=== PATIENT | male | born 1965 | race African-American/Black ===

== ENCOUNTER 2016-06-12 15:28 | Emergency (ER) | payer MEDICAID, OTHER ==
[~2016-06-12] VITALS: Ht 185.4 cm; Wt 92.7 kg
[~2016-06-12 15:28] MED LIST: HYDR-762 PO; HYDR-902 PO; IBUP800T25 PO; ONDA4TAB35 PO; TAMS-14 PO
[2016-06-12 15:41] VITALS: Ht 185.4 cm; Wt 92.7 kg
[2016-06-12] MEDS ORDERED: SOD CHLORIDE 0.9% 1,000 ML IV STA (17:09)
[2016-06-12] MEDS ORDERED: ONDANSETRON 4 MG INJ IV STA (17:09)
[2016-06-12] MEDS ORDERED: DICLOFENAC SODIUM 37.5 MG/ML VIAL IV STA (17:09)
[2016-06-12 18:05] LABS: HEMATOCRIT 44.7 % (42.0-52.0); HEMOGLOBIN 14.9 g/dl (14.0-18.0); MEAN CORPUSCULAR HEMOGLOBIN 28.6 pg (29.0-33.0); MEAN CORPUSCULAR HGB CONC 33.4 g/dl (32.0-37.0); MEAN CORPUSCULAR VOLUME 85.7 fl (82.0-101.0); PLATELET COUNT 270 10^3/UL (140-440); RED BLOOD COUNT 5.22 10^6/ul (4.70-6.10); RED CELL DISTRIBUTION WIDTH 15.7 % (11.5-14.5); UNCORRECTED WBC 21.4 10^3/ul (4.8-10.8); WHITE BLOOD COUNT 21.4 10^3/ul (4.8-10.8)
[2016-06-12 18:09] LABS: CONDITION 1; LH ANALYZER COMMENTS 1; SUSPECT 1
[2016-06-12 18:14] LABS: INR 0.99; PROTIME 13.1 Sec (12.2-14.2)
[2016-06-12 18:15] LABS: PARTIAL THROMBOPLASTIN TIME 30.3 Sec (25.0-35.0)
[2016-06-12 18:16] LABS: ALBUMIN 4.6 g/dl (3.3-4.9); POTASSIUM 3.8 mmol/L (3.5-5.1)
[2016-06-12 18:18] LABS: BILIRUBIN,INDIRECT 0.4 mg/dl (0-1.1); BILIRUBIN,TOTAL 0.4 mg/dl (0.2-1.3); CREATININE 1.26 mg/dl (0.61-1.24)
[2016-06-12 18:19] LABS: ALBUMIN/GLOBULIN RATIO 0.95; CALCIUM 10.3 mg/dl (8.4-10.2); TOTAL PROTEIN 9.4 g/dl (6.1-8.1)
[2016-06-12 18:47] LABS: LYMPHOCYTES # 2.4 10^3/ul (0.8-2.9); MONOCYTE # 1.9 10^3/ul (0.3-0.9); NEUTROPHIL # 16.5 10^3/ul (1.6-7.5)
--- NOTE | 2016-06-12 19:00 | RADRPT ---
PROCEDURE: CT abdomen and pelvis without contrast. CLINICAL INDICATION: Left upper quadrant pain that radiates to the back. TECHNIQUE: CT of the abdomen and pelvis without contrast was performed on a multidetector high-res olution CT scanner. Coronal and sagittal reformatted images were obtained from the axial source imag es. Images were reviewed on a high-resolution PACS workstation. The total exam CTDI equals 10.26 mGy and the total exam DLP equals 636.26 mGy-cm. One or more of the following dose reduction techniques were used: - Automated exposure control. - Adjustment of the mA and/or kV according to patient size. - Use of iterative reconstruction technique. COMPARISON: CT dated 05/11/2016. FINDINGS: The visualized lung bases are clear and the visualized heart is unremarkable. The liver is grossly unremarkable. There is no intra or extrahepatic biliary ductal dilatation. The gallbladder, spleen, pancreas, adrenal glands are grossly unremarkable. There is an obstructing 5 mm stone in the distal left ureter just above the ureteral vesicle junctio n with associated moderate to severe left-sided hydroureteronephrosis and left perinephric and periu reteral inflammatory change. There are no residual radiopaque stones within the left kidney and the re are no stones within the right kidney, ureter, or bladder. There is a simple 2.8 cm cyst at the lower pole of the right kidney. There is no right-sided hydronephrosis. There is sigmoid diverticulosis without bowel wall thickening or evidence of obstruction. The append ix is in the right lower quadrant, and is unremarkable. There is no free intraperitoneal air or free fluid. There is no mesenteric or retroperitoneal adenopathy. There are atherosclerotic changes of the aorta and its branch vessels. 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 The prostate gland and seminal vesicles are grossly unremarkable. Ther e is mild multilevel degenerative spondylosis. There are no concerning osseous lesions. IMPRESSION: 1. Obstructing 5 mm stone in the distal left ureter with associated moderate to severe left-sided h ydroureteronephrosis. 2. 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 3. Vascular calcifications consistent with atherosclerosis. 4. Benign 2.8 cm cyst at the lower pole of the right kidney. No further workup is necessary. These findings discussed with Michael Allen in the ED at 1854 hours on 06/12/2016. RPTAT: HLBP .Faheem Love MD, Date Time Electronically viewed and signed by .Faheem Love MD, on 06/12/2016 18:59 .P/
[2016-06-12 19:33] LABS: ADD UMIC YES; URINE BILIRUBIN (Dip) 1+ (NEGATIVE); URINE BLOOD (Dip) 1+ (NEGATIVE); URINE GLUCOSE (Dip) NEGATIVE (NEGATIVE); URINE KETONES (Dip) 40 (NEGATIVE); URINE LEUKOCYTE ESTERASE (Dip) TRACE (NEGATIVE); URINE NITRITE (Dip) NEGATIVE (NEGATIVE); URINE TOTAL PROTEIN (Dip) TRACE (NEGATIVE); URINE UROBILINOGEN (Dip) 0.2 E.U./dL (0.1-1.0)
[2016-06-12 19:50] LABS: URINE COLOR YELLOW (YELLOW)
[2016-06-12 19:51] LABS: BACTERIA,URINE FEW; ICTOTEST NEGATIVE (NEGATIVE); MUCUS,URINE MANY; TRANSITIONAL EPI CELLS,URINE FEW; TRICHOMONAS,URINE FEW; URINE RBCS >50 /HPF (0)
[2016-06-12] MEDS ORDERED: HYDR-906 PO (20:29)
[2016-06-12] MEDS ORDERED: ONDA4TAB14 PO (20:29)
[2016-06-12] MEDS ORDERED: NAPR-260 PO (20:29)
[2016-06-12 20:36] VITALS: BP 143/91; RESP 30; TEMP 97.7
--- NOTE | 2016-06-12 20:47 | ERD ---
ER Documentation Chief Complaint Date/Time DATE: 06/12/16 TIME: 20:42 Chief Complaint left quadrant pain radiates to the back HPI This 50-year-old male presents for left lower quadrant pain that radiates to his left flank. Pain has been present for a day. He does have a history of passing kidney stones. He denies any fevers and chills. He has no nausea. He is having normal bowel movements. He denies any obvious blood in his urine. ROS All systems reviewed and are negative except as per history of present illness. Medications Home Meds Active Scripts Ondansetron (Ondansetron Odt) 4 Mg Tab.rapdis, 4 MG PO Q6H Y for NAUSEA AND/OR VOMITING, #10 TAB Prov:CONSUELOMORENO DO 06/12/16 Hydrocodone/Acetaminophen (Revere 5-325 Tablet) 1 Each Tablet, 1 EACH PO Q6, #20 TAB Prov:CONSUELOMORENO DO 06/12/16 Naproxen* (Naprosyn*) 500 Mg Tablet, 500 MG PO BID Y for PAIN AND/OR INFLAMMATION, #30 TAB Prov:CONSUELOMORENO DO 06/12/16 Tamsulosin Hcl* (Flomax*) 0.4 Mg Cap.er.24h, 0.4 MG PO QPM, #30 CAP Prov:BALAJI LOPEZ MD 05/11/16 Hydrocodone/Acetaminophen (Revere 10-325 Tablet) 1 Each Tablet, 1 TAB PO Q6H Y for PAIN, #20 TAB Prov:BALAJI LOPEZ MD 05/11/16 Ibuprofen* (Motrin*) 800 Mg Tab, 800 MG PO Q6H Y for PAIN AND OR ELEVATED TEMP, #30 TAB Prov:LAZ IBANEZ MD 10/25/15 Tamsulosin Hcl* (Flomax*) 0.4 Mg Cap.er.24h, 0.4 MG PO QPM, #30 CAP Prov:LAZ IBANEZ MD 10/25/15 Ondansetron Hcl* (Zofran* ODT) 4 mg -ODT Tab.disper, 4 MG PO Q6 Y for NAUSEA AND /OR VOMITING, #30 TAB Prov:LAZ IBANEZ MD 10/25/15 Hydrocodone Bit-Acetaminophen* (Revere*) 10-325 Mg Tablet, 1 TAB PO Q6 Y for PAIN , #12 TAB Prov:LAZ IBANEZ MD 10/25/15 Allergies Allergies: Coded Allergies: No Known Allergy (Unverified , 05/11/16) PMhx/Soc History of Surgery: No Anesthesia Reaction: No Hx Neurological Disorder: Yes (Stroke with right sided weakness) Hx Respiratory Disorders: No Hx Cardiac Disorders: Yes (HTN) Hx Psychiatric Problems: No Hx Miscellaneous Medical Probl: No Hx Alcohol Use: Yes Hx Substance Use: Yes (marijuana) Hx Tobacco Use: Yes Smoking Status: Current every day smoker Physical Exam Vitals Vital Signs Date Time Temp Pulse Resp B/P Pulse Ox O2 Delivery O2 Flow Rate FiO2 06/12/16 16:47 97.7 30 165/110 100 Room Air 06/12/16 15:41 98.7 88 19 183/98 98 Physical Exam Const: [] No distress Head: Atraumatic Eyes: Normal Conjunctiva ENT: Normal External Ears, Nose and Mouth. Neck: Full range of motion..~ No meningismus. Resp: Clear to auscultation bilaterally Cardio: Regular rate and rhythm, no murmurs Abd: Soft, non tender, non distended. Normal bowel sounds Skin: No petechiae or rashes Back: No midline or flank tenderness Ext: No cyanosis, or edema Neur: Awake and alert and oriented 3, no focal deficits Psych: Normal Mood and Affect Result Diagram: 06/12/16 1730 06/12/16 1730 Results 24 hrs Laboratory Tests Test 06/12/16 16:44 06/12/16 17:30 06/12/16 19:11 Bedside Glucose 154mg/dL Activated Partial Thromboplast Time 30.3Sec Alanine Aminotransferase (ALT/SGPT) 22IU/L Albumin 4.6g/dl Albumin/Globulin Ratio 0.95 Alkaline Phosphatase 125IU/L Anion Gap 23 Aspartate Amino Transf (AST/SGOT) 21IU/L Band Neutrophils % 3.0% Blood Morphology Comment Blood Urea Nitrogen 20mg/dl Calcium Level 10.3mg/dl Carbon Dioxide Level 24mmol/L Chloride Level 105mmol/L Creatinine 1.26mg/dl Direct Bilirubin 0.00mg/dl Globulin 4.80g/dl Glucose Level 132mg/dl Hematocrit 44.7% Hemoglobin 14.9g/dl INR International Normalized Ratio 0.99 Indirect Bilirubin 0.4mg/dl Lipase 113U/L Lymphocytes # 2.410^3/ul Lymphocytes % 11.0% Mean Corpuscular Hemoglobin 28.6pg Mean Corpuscular Hemoglobin Concent 33.4g/dl Mean Corpuscular Volume 85.7fl Mean Platelet Volume 9.0fl Monocytes # 1.910^3/ul Monocytes % 9.0% Neutrophils # 16.510^3/ul Neutrophils % 77.0% Platelet Count 97890^3/UL Potassium Level 3.8mmol/L Prothrombin Time 13.1Sec Prothrombin Time Ratio 1.0 Red Blood Count 5.2210^6/ul Red Cell Distribution Width 15.7% Sodium Level 148mmol/L Total Bilirubin 0.4mg/dl Total Protein 9.4g/dl White Blood Count 21.410^3/ul Urine Bacteria FEW Urine Bilirubin 1+ Urine Clarity CLOUDY Urine Color YELLOW Urine Glucose NEGATIVE% Urine Hemoglobin 1+ Urine Ictotest NEGATIVE Urine Ketones 40 Urine Leukocyte Esterase TRACE Urine Microscopic RBC >50/HPF Urine Microscopic WBC 5-10/HPF Urine Mucus MANY Urine Nitrite NEGATIVE Urine Specific [place] 1.020 Urine Total Protein TRACE Urine Transitional Epithelial Cells FEW Urine Trichomonas FEW Urine Urobilinogen 0.2 E.U./dL Urine pH 6.0 Current Medications Medications (Trade) Dose Ordered Sig/Emeka Route PRN Reason Start Time Stop Time Status Last Admin Dose Admin Sodium Chloride (NS) 1,000 ml @ 1,000 mls/hr Q1H STAT IV 06/12/16 17:09 06/12/16 18:08 DC 06/12/16 17:36 Ondansetron HCl (Zofran Inj) 4 mg ONCE STAT IV 06/12/16 17:09 06/12/16 17:11 DC 06/12/16 17:36 Diclofenac Sodium (Dyloject) 37.5 mg ONCE STAT IV 06/12/16 17:09 06/12/16 17:11 DC 06/12/16 17:36 Procedures/MDM Left distal ureteral stone with moderate to severe hydronephrosis. Patient has leukocytosis without any evidence of infection. It is likely reactive related to the hydronephrosis. He was given a liter of normal saline as well as IV diclofenac. This resolved his pain completely as stated he had no symptoms whatsoever. Present was told that he light of fluid backing of his kidney. He still preferred to go home as he has no symptoms currently. . Because the stone although 5 mm is right above the entrance to the bladder and symptoms on her present for one day as arty past this far, I'm going to discharge him. I told him to have a very low threshold for returning to the hospital for any reasons be at fever or returning pain and also told him that if he still has the same pain 2 days from now that he should return.. And discharging him with naproxen, Revere, Zofran. States he has plenty of Flomax at home. Evidence of mild renal dysfunction. CT abdomen and pelvis interpretation: 5 mm stone of the distal ureter at the UPJ with moderate to severe hydronephrosis, no obstruction, no free air, no fractures Departure Diagnosis: Primary Impression: Hydronephrosis Additional Impression: Ureteral colic Condition: Stable Patient Instructions: Hydronephrosis Adult, Kidney Stone W/ Colic Additional Instructions: Call your primary care doctor TOMORROW for an appointment during the next 2-3 days.See the doctor sooner or return here if your condition worsens before your appointment time. MORENO CORDERO DO Jun 12, 2016 20:47
== END 2016-06-12 21:50 | disposition home or self-care (01) ==
LOC: E/R 15:28
DX: N13.30 Unspecified hydronephrosis (principal); N23 Unspecified renal colic; I10 Essential (primary) hypertension; F17.210 Nicotine dependence, cigarettes, uncomplicated
CPT/HCPCS: 36415; 74176; 80053; 81001; 82962; 83690; 85025; 85610; 85730; 96374; 96375; J2405; J7030; Z7502; Z7610; 81003

== ENCOUNTER 2016-10-20 22:11 | Emergency (ER) | payer MEDICAID, OTHER ==
[~2016-10-20] VITALS: Ht 177.8 cm; Wt 90.5 kg
[~2016-10-20 22:11] MED LIST changes: +HYDR-906 PO; +NAPR-260 PO; +ONDA4TAB14 PO
[2016-10-20 22:20] VITALS: Ht 177.8 cm; Wt 90.5 kg
[2016-10-20] MEDS ORDERED: ONDANSETRON 4 MG INJ IV STA (22:47)
[2016-10-20] MEDS ORDERED: KETOROLAC 30 MG INJ IV STA (22:47)
[2016-10-20] MEDS ORDERED: HYDROmorphONE 1 MG/ML SYG IV STA (22:47)
[2016-10-20] MEDS ORDERED: SOD CHLORIDE 0.9% 1,000 ML IV STA (22:47)
[2016-10-20 22:50] VITALS: RESP 24; TEMP 98
[2016-10-20 23:02] LABS: ADD SCAN DIFF NO
[2016-10-20 23:03] LABS: BASOPHILS % 0.1 % (0.0-2.0); EOSINOPHILS % 0.2 % (0.0-7.0); HEMATOCRIT 40.9 % (42.0-52.0); HEMOGLOBIN 13.7 g/dl (14.0-18.0); LYMPHOCYTES # 2.3 10^3/ul (0.8-2.9); MEAN CORPUSCULAR HEMOGLOBIN 28.5 pg (29.0-33.0); MEAN CORPUSCULAR HGB CONC 33.5 g/dl (32.0-37.0); MEAN CORPUSCULAR VOLUME 85.2 fl (82.0-101.0); MEAN PLATELET VOLUME 9.4 fl (7.4-10.4); MONOCYTE # 1.3 10^3/ul (0.3-0.9); MONOCYTES % 6.7 % (0.0-11.0); NEUTROPHIL # 15.3 10^3/ul (1.6-7.5); NEUTROPHILS % 80.7 % (39.0-77.0); PLATELET COUNT 276 10^3/UL (140-415); RED CELL DISTRIBUTION WIDTH 15.7 % (11.5-14.5)
[2016-10-20 23:29] VITALS: BP 133/76; PULSE 52
[2016-10-20 23:29] LABS: INR 1.03; PROTIME 13.5 Sec (12.2-14.2); PT RATIO 1.1
[2016-10-20 23:30] LABS: PARTIAL THROMBOPLASTIN TIME 27.5 Sec (25.0-35.0)
[2016-10-20 23:31] LABS: CALCIUM 9.6 mg/dl (8.4-10.2); CREATININE 1.11 mg/dl (0.61-1.24); POTASSIUM 3.8 mmol/L (3.5-5.1)
--- NOTE | 2016-10-20 23:53 | ERD ---
ER Documentation Chief Complaint Date/Time DATE: 10/20/16 TIME: 23:52 Chief Complaint left flank pain since 5 hours ago HPI 51-year-old male history of kidney stones who presents with sudden onset left flank pain radiating to the left lower quadrant. He states this feels similar to stones. He states that in the past he has required lithotripsy. He also describes a large left renal cyst. He denies any fevers or chills, no nausea or vomiting. Pain is severe, colicky. ROS All systems reviewed and are negative except as per history of present illness. Medications Home Meds Active Scripts Ibuprofen* (Motrin*) 800 Mg Tab, 800 MG PO Q6H Y for PAIN AND OR ELEVATED TEMP, #30 TAB Prov:LAZ IBANEZ MD 10/21/16 Tamsulosin Hcl* (Flomax*) 0.4 Mg Cap.er.24h, 0.4 MG PO HS, #8 CAP Prov:LAZ IBANEZ MD 10/21/16 Ondansetron (Ondansetron Odt) 4 Mg Tab.rapdis, 4 MG PO Q6H Y for NAUSEA AND/OR VOMITING, #30 TAB Prov:LAZ IBANEZ MD 10/21/16 Hydrocodone/Acetaminophen (Gordon 10-325 Tablet) 1 Each Tablet, 1 TAB PO Q6H Y for PAIN, #10 TAB Prov:LAZ IBANEZ MD 10/21/16 Ondansetron (Ondansetron Odt) 4 Mg Tab.rapdis, 4 MG PO Q6H Y for NAUSEA AND/OR VOMITING, #10 TAB Prov:MORENO CORDERO DO 06/12/16 Hydrocodone/Acetaminophen (Gordon 5-325 Tablet) 1 Each Tablet, 1 EACH PO Q6, #20 TAB Prov:MORENO CORDERO DO 06/12/16 Naproxen* (Naprosyn*) 500 Mg Tablet, 500 MG PO BID Y for PAIN AND/OR INFLAMMATION, #30 TAB Prov:MORENO CORDERO DO 06/12/16 Tamsulosin Hcl* (Flomax*) 0.4 Mg Cap.er.24h, 0.4 MG PO QPM, #30 CAP Prov:BALAJI LOPEZ MD 05/11/16 Ibuprofen* (Motrin*) 800 Mg Tab, 800 MG PO Q6H Y for PAIN AND OR ELEVATED TEMP, #30 TAB Prov:LAZ IBANEZ MD 10/25/15 Discontinued Scripts Hydrocodone/Acetaminophen (Gordon 10-325 Tablet) 1 Each Tablet, 1 TAB PO Q6H Y for PAIN, #20 TAB Prov:BALAJI LOPEZ MD 05/11/16 Tamsulosin Hcl* (Flomax*) 0.4 Mg Cap.er.24h, 0.4 MG PO QPM, #30 CAP Prov:LAZ IBANEZ MD 10/25/15 Ondansetron Hcl* (Zofran* ODT) 4 mg -ODT Tab.disper, 4 MG PO Q6 Y for NAUSEA AND /OR VOMITING, #30 TAB Prov:LAZ IBANEZ MD 10/25/15 Hydrocodone Bit-Acetaminophen* (Gordon*) 10-325 Mg Tablet, 1 TAB PO Q6 Y for PAIN , #12 TAB Prov:LAZ IBANEZ MD 10/25/15 Allergies Allergies: Coded Allergies: No Known Allergy (Unverified , 05/11/16) PMhx/Soc History of Surgery: No Anesthesia Reaction: No Hx Neurological Disorder: Yes (Stroke with right sided weakness) Hx Respiratory Disorders: No Hx Cardiac Disorders: Yes (HTN) Hx Psychiatric Problems: No Hx Miscellaneous Medical Probl: No Hx Alcohol Use: Yes Hx Substance Use: Yes (marijuana) Hx Tobacco Use: Yes Smoking Status: Current every day smoker FmHx Family History: No diabetes Physical Exam Vitals Vital Signs Date Time Temp Pulse Resp B/P Pulse Ox O2 Delivery O2 Flow Rate FiO2 10/20/16 23:29 52 133/76 10/20/16 22:50 98.0 60 24 152/119 100 Room Air 10/20/16 22:20 98.2 88 20 154/82 99 Physical Exam General: Uncomfortable and in pain Head: Normocephalic, atraumatic. Eyes: Pupils equally reactive, EOM intact ENT: Moist mucous membranes Neck: Supple, no lymphadenopathy Respiratory: Lungs clear bilaterally, no distress Cardiovascular: RRR, no murmurs, rubs, or gallops Abdominal: Soft, left-sided abdominal tenderness without rebound or guarding, no inguinal hernia : Deferred MSK: No edema, no unilateral swelling, 5/5 strength Neurologic: Alert and oriented, moving all extremities, normal speech, no focal weakness, no cerebellar signs Skin: No rash Psych: Normal mood Result Diagram: 10/20/16223910/20/162239 Results 24 hrs Laboratory Tests Test 10/20/16 22:40 White Blood Count 19.010^3/ul Red Blood Count 4.8010^6/ul Hemoglobin 13.7g/dl Hematocrit 40.9% Mean Corpuscular Volume 85.2fl Mean Corpuscular Hemoglobin 28.5pg Mean Corpuscular Hemoglobin Concent 33.5g/dl Red Cell Distribution Width 15.7% Platelet Count 13939^3/UL Mean Platelet Volume 9.4fl Neutrophils % 80.7% Lymphocytes % 12.0% Monocytes % 6.7% Eosinophils % 0.2% Basophils % 0.1% Nucleated Red Blood Cells % 0.0/100WBC Neutrophils # 15.310^3/ul Lymphocytes # 2.310^3/ul Monocytes # 1.310^3/ul Eosinophils # 0.010^3/ul Basophils # 0.010^3/ul Nucleated Red Blood Cells # 0.010^3/ul Prothrombin Time 13.5Sec Prothrombin Time Ratio 1.1 INR International Normalized Ratio 1.03 Activated Partial Thromboplast Time 27.5Sec Sodium Level 141mmol/L Potassium Level 3.8mmol/L Chloride Level 107mmol/L Carbon Dioxide Level 28mmol/L Anion Gap 10 Blood Urea Nitrogen 16mg/dl Creatinine 1.11mg/dl Glucose Level 118mg/dl Calcium Level 9.6mg/dl Current Medications Medications (Trade) Dose Ordered Sig/Emeka Route PRN Reason Start Time Stop Time Status Last Admin Dose Admin Sodium Chloride (NS) 1,000 ml @ 1,000 mls/hr Q1H STAT IV 10/20/16 22:47 10/20/16 23:46 DC 10/20/16 22:51 Hydromorphone HCl (Dilaudid) 1 mg ONCE STAT IV 10/20/16 22:47 10/20/16 22:49 DC 10/20/16 22:51 Ondansetron HCl (Zofran Inj) 4 mg ONCE STAT IV 10/20/16 22:47 10/20/16 22:49 DC 10/20/16 22:51 Ketorolac Tromethamine (Toradol) 30 mg ONCE STAT IV 10/20/16 22:47 10/20/16 22:49 DC 10/20/16 22:51 Procedures/MDM EKG, MONITORS, & DIAGNOSTIC IMAGING: CT abdomen and pelvis: IMPRESSION: 1. Moderate left-sided hydroureteronephrosis with an obstructing distal left ureterovesicle junction 6 x 5 mm calculus similar appearance to the patient's prior study. 2. Right renal cyst. 3. Mild retained stool without obstruction. 4. Right common iliac artery 2.4 cm aneurysmal dilatation without interval change. LAB INTERPRETATION: Leukocytosis secondary to pain. No urinary tract infection MEDICAL DECISION MAKING: The patient presents with colicky left flank pain. The patient's symptoms are very consistent with renal colic. The patient has had kidney stones in the past however they have been complicated. This will prompt CT imaging of the abdomen and pelvis. Patient will benefit from pain control, rule out of complication such as abscess, intractable pain or infection. ER COURSE: The patient's pain is improved. The patient has leukocytosis but no evidence of infection. The patient will be referred back to his urologist. Return precautions discussed including uncontrolled pain, fever or persistent symptoms. I kept the patient and/or family informed of laboratory and diagnostic imaging results throughout the emergency room course. DISPOSITION PLAN: We discussed follow up with the patient's primary care doctor within 24 to 48 hours as needed. We also discussed return to the emergency room for worsening symptoms or worsening condition. Outpatient referral: Urology Discharge Medications: Gordon, Zofran, Flomax, Motrin We discussed the use of narcotics including avoidance of operating heavy machinery and driving as well as its addictive properties. Departure Diagnosis: Primary Impression: Ureteral colic Condition: LAZ Sherman MD October 20, 2016 23:53
--- NOTE | 2016-10-21 00:18 | RADRPT ---
PROCEDURE: CT ABDOMEN/PELVIS WITHOUT CONTRAST CLINICAL INDICATION: 51-year-old male with abdominal/flank pain. TECHNIQUE: The study was performed utilizing a [employer] VCT 64-slice CT scanner. Direct axia l sections were obtained through the abdomen and pelvis without the use of intravenous contrast mate rial. Sagittal and coronal reformations were obtained. One or more of the following dose reduction t echniques were utilized: automated exposure control, adjustment of the mA and/or kV according to pat ient's size or use of iterative reconstruction technique. The images were reviewed on a PACS workst [employer]. CTD/vol = 11.9 mGy; Total Exam DLP = 745.0 mGy-cm. COMPARISON: CT abdomen/pelvis June 12, 2016. FINDINGS: There is trace bibasilar subsegmental atelectasis There is no evidence for significant pleural effu hiwot. The liver has a normal size and contour without focal areas of abnormal density. No intrahepa tic nor extrahepatic biliary ductal dilatation is seen. The gallbladder demonstrates no wall thicken ing nor pericholecystic fluid. No biliary stones are evident. The pancreas is without areas of abnor mal attenuation. The spleen is identified and has a normal size without abnormal density. The adren al glands are unremarkable. There is a right mid renal cortical cyst again visualized measuring appr oximately 2.9 x 2.7 x 2.9 cm. There is moderate left-sided hydroureteronephrosis with an obstructin g calculus at the ureterovesicle junction region measuring approximately 6 x 5 x 5 mm. This is nona lar in appearance to the patient's prior study. The urinary bladder contains urine. The stomach con tains fluid. There is mild retained stool within the ascending and rectosigmoid colon without obstruction. The appendix is visualized and is without abnormal thickening or surrounding inflammat ory reaction. The prostate is not enlarged. The aortoiliac vessels are calcified with a right commo n iliac artery aneurysm again noted with maximal transverse dimension of approximately 2.4 cm. The osseous structures are intact. IMPRESSION: 1. Moderate left-sided hydroureteronephrosis with an obstructing distal left ureterovesicle junctio n 6 x 5 mm calculus similar appearance to the patient's prior study. 2. Right renal cyst. 3. Mild retained stool without obstruction. 4. Right common iliac artery 2.4 cm aneurysmal dilatation without interval change. .Davion Agrawal MD, Date Time Electronically viewed and signed by .Davion Agrawal MD, on 10/21/2016 00:17 .Rand/
[2016-10-21] MEDS ORDERED: ONDA4TAB14 PO (00:32)
[2016-10-21] MEDS ORDERED: HYDR-902 PO (00:32)
[2016-10-21] MEDS ORDERED: TAMS-14 PO (00:32)
[2016-10-21] MEDS ORDERED: IBUP800T25 PO (00:34)
[2016-10-21] MEDS ORDERED: LISI20TA11 PO (01:15)
[2016-10-21] MEDS ORDERED: HYDR-3672 PO (01:15)
== END 2016-10-21 00:48 | disposition home or self-care (01) ==
LOC: E/R 22:11
DX: N23 Unspecified renal colic (principal); F17.210 Nicotine dependence, cigarettes, uncomplicated; I10 Essential (primary) hypertension
CPT/HCPCS: 74176; 80048; 85025; 85610; 85730; J1170; J1885; J2405; J7030; 36415; 96374; 96375

== ENCOUNTER 2017-09-08 11:44 | Emergency (ER) | END 2017-09-08 16:02 | disposition home or self-care (01) ==

== ENCOUNTER → 2018-01-10 | Outpatient (CLI) | END | disposition home or self-care (01) ==